=== PATIENT | female | born 1955 | race Caucasian/White ===

== ENCOUNTER 2017-05-25 20:44 | Emergency (ER) | payer OTHER, SELFPAY ==
--- NOTE | 2017-05-25 21:23 | EDM.PDOC ---
ED HPI GENERAL MEDICAL PROBLEM - General Chief Complaint: Abdominal Pain Stated Complaint: SEVERE ABD PAINS, [id number] Time Seen by Provider: 05/25/17 21:17 Source of Information: Reports: Patient History Limitations: Reports: No Limitations - History of Present Illness INITIAL COMMENTS - FREE TEXT/NARRATIVE: This 61 yo female patient reports to the ED with upper abdominal pain with nausea/vomiting. The patient reports her pain started at about 2000 tonight and has continued to get worse. The patient has not taken anything for her current symptoms. 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 The patient reports she has been doing good until she had sausage this evening. Onset: Today Onset Date: 05/25/17 Onset Time: 20:00 Duration: Constant, Getting Worse Location: Reports: Abdomen (RUQ radiating to her back and right shoulder blade) Quality: Reports: Ache, Sharp Severity: Severe Improves with: Reports: None Worsens with: Reports: None Associated Symptoms: Reports: Nausea/Vomiting Right Upper Abdomen Pain Score (Numeric/FACES): 9 - Related Data Allergies Allergy/AdvReac Type Severity Reaction Status Date / Time morphine Allergy Hallucinati Verified 05/25/17 21:23 ons quinine Allergy Rash Verified 05/25/17 21:23 Home Meds: Home Meds Ibuprofen [Motrin] 400 mg PO Q8H PRN 10/21/14 [History] Past Medical History - Past Health History Medical/Surgical History: Denies Medical/Surgical History Social & Family History - Tobacco Use Smoking Status *Q: Current Every Day Smoker Years of Tobacco use: 40 Packs/Tins Daily: 0.3 Used Tobacco, but Quit: Yes Month Tobacco Last Used: 10/17/14 Second Hand Smoke Exposure: Yes - Caffeine Use Caffeine Use: Reports: Soda - Alcohol Use Days Per Week of Alcohol Use: 0 - Recreational Drug Use Recreational Drug Use: No - Living Situation & Occupation Living situation: Reports: , with Family Occupation: Employed ED ROS GENERAL - Review of Systems Review Of Systems: ROS reveals no pertinent complaints other than HPI. ED EXAM, GI/ABD - Physical Exam Exam: See Below Exam Limited By: No Limitations General Appearance: Alert, WD/WN, Moderate Distress, Obese Eyes: Bilateral: Normal Appearance, EOMI Ears: Normal External Exam, Normal Canal, Hearing Grossly Normal, Normal TMs Nose: Normal Inspection, Normal Mucosa, No Blood Throat/Mouth: Normal Inspection, Normal Lips, Normal Teeth, Normal Gums, Normal Oropharynx, Normal Voice, No Airway Compromise Head: Atraumatic, Normocephalic Neck: Normal Inspection, Supple, Non-Tender, Full Range of Motion Respiratory/Chest: No Respiratory Distress, Lungs Clear, Normal Breath Sounds, No Accessory Muscle Use, Chest Non-Tender Cardiovascular: Normal Peripheral Pulses, Regular Rate, Rhythm, No Edema, No Gallop, No JVD, No Murmur, No Rub GI/Abdominal Exam: Normal Bowel Sounds, Soft, No Organomegaly, No Distention, No Abnormal Bruit, No Mass, Pelvis Stable, Tender (RUQ), Other (obese) (Female) Exam: Deferred Rectal (Female) Exam: Deferred Back Exam: Normal Inspection, Full Range of Motion, NT Extremities: Normal Inspection, Normal Range of Motion, Non-Tender, Normal Capillary Refill, No Pedal Edema Neurological: Alert, Oriented, CN II-XII Intact, Normal Cognition, Normal Gait, Normal Reflexes, No Motor/Sensory Deficits Psychiatric: Normal Affect, Normal Mood Skin Exam: Warm, Dry, Intact, Normal Color, No Rash Lymphatic: No Adenopathy Course - Vital Signs Last Recorded V/S: Last Vital Signs Temp 35.8 C 05/25/17 21:05 Pulse 65 05/25/17 21:05 Resp 16 05/25/17 21:05 BP 161/101 H 05/25/17 21:05 Pulse Ox 98 05/25/17 21:05 - Orders/Labs/Meds Labs: Laboratory Tests 05/25/17 05/25/17 05/25/17 Range/Units 21:10 21:10 22:28 WBC 11.8 H (5.0-10.0) 10^3/uL RBC 4.53 (4.2-5.4) 10^6/uL Hgb 13.8 (12.0-16.0) g/dL Hct 40.9 (37.0-47.0) % MCV 90.3 (80-100) fL MCH 30.5 (27.0-34.0) pg MCHC 33.7 (33.0-35.0) g/dL Plt Count 205 (150-450) 10^3/uL Neut % (Auto) 78.6 H (42.2-75.2) % Lymph % (Auto) 13.4 L (20.5-50.1) % [place] % (Auto) 6.8 (2-8) % Eos % (Auto) 1.0 (1.0-3.0) % Baso % (Auto) 0.2 (0.0-1.0) % Sodium 137 (135-145) mmol/L Potassium 4.4 (3.6-5.0) mmol/L Chloride 101 (101-111) mmol/L Carbon Dioxide 26.0 (21.0-31.0) mmol/L Anion Gap 14.4 BUN 11 (7-18) mg/dL Creatinine 0.8 (0.6-1.3) mg/dL Est Cr Clr Drug Dosing 60.06 mL/min Estimated GFR (MDRD) > 60 BUN/Creatinine Ratio 13.75 Glucose 143 H (74-105) mg/dL Calcium 9.3 (8.4-10.2) mg/dl Magnesium 1.9 (1.8-2.5) mg/dL Total Bilirubin 0.5 (0.2-1.0) mg/dL AST 20 (10-42) IU/L ALT 23 (10-60) IU/L Alkaline Phosphatase 60 (42-121) IU/L Total Protein 7.3 (6.7-8.2) g/dl Albumin 4.4 (3.2-5.5) g/dl Globulin 2.9 Albumin/Globulin Ratio 1.52 Amylase 89 (28-100) U/L Lipase 24 (22-51) U/L Urine Color Yellow (YELLOW) Urine Appearance Cloudy (CLEAR) Urine pH 6.0 (5.0-9.0) Ur Specific [place] 1.015 (1.005-1.030) Urine Protein Negative (NEGATIVE) Urine Glucose (UA) Negative (NEGATIVE) Urine Ketones Negative (NEGATIVE) Urine Occult Blood Small H (NEGATIVE) Urine Nitrite Negative (NEGATIVE) Urine Bilirubin Negative (NEGATIVE) Urine Urobilinogen 0.2 (0.2-1.0) mg/dL Ur Leukocyte Esterase Negative (NEGATIVE) Urine RBC 5-10 H /HPF Urine WBC 5-10 H (0-5/HPF) /HPF Ur Epithelial Cells Many H /HPF Urine Bacteria Many H (0-FEW/HPF) /HPF Urine Yeast Moderate H (0/HPF) /HPF Meds: Medications Discontinued Medications Generic Name Dose Route Start Last Admin Trade Name Ja PRN Reason Stop Dose Admin Hydromorphone HCl 1 mg 05/25/17 21:28 05/25/17 21:33 Dilaudid IVPUSH 05/25/17 21:29 1 mg ONETIME ONE Administration Iopamidol 100 ml 05/25/17 21:44 Isovue-300 (61%) IVPUSH 05/25/17 21:45 ONETIME ONE Ondansetron HCl 4 mg 05/25/17 21:25 05/25/17 21:33 Zofran IV 05/25/17 21:26 4 mg ONETIME ONE Administration Departure - Departure Time of Disposition: 23:09 Disposition: Home, Self-Care 01 Condition: Fair Clinical Impression: Renal cyst Cholelithiasis Qualifiers: Cholelithiasis location: gallbladder Cholecystitis presence: without cholecystitis Biliary obstruction: without biliary obstruction Qualified Code(s) : K80.20 - Calculus of gallbladder without cholecystitis without obstruction - Discharge Information Instructions: Cholelithiasis, [id number], Renal Mass Forms: ED Department Discharge Care Plan Goals: The patient was advised of the examination lab and CT results during the visit. The patient was given an IV dose of Zofran for nausea and Dilaudid for pain. The patient was discharged with Tramadol (50 mg) #2 to take 1 by mouth every 8 hours and a script for Tramadol (50 mg) #15 to take 1 by mouth 3 times per day as needed. The patient should follow-up with her primary care facility for continued evaluation (gall bladder and renal ultrasound) and treatment. If the patient has any additional symptoms or concerns, the patient should visit her primary care facility or return to the emergency department.
[2017-05-25] MEDS ORDERED: Ondansetron 4 MG/2 ML SDV IV ONE (21:25)
[2017-05-25] MEDS ORDERED: HYDROmorphone 1 MG/ML Syringe IVPUSH ONE (21:28)
[2017-05-25 21:40] LABS: CHLORIDE,CL 101 mmol/L (101-111); SODIUM,NA 137 mmol/L (135-145)
[2017-05-25] MEDS ORDERED: Iopamidol 612 MG/ML 100 ML Bottle IVPUSH ONE (21:44)
[2017-05-25] MEDS ORDERED: traMADol 50 MG Tab PO ONE (23:18)
[2017-05-25] MEDS ORDERED: traMADol 50 MG Tab ONE (23:18)
[2017-05-25 23:35] VITALS: BP 141/98
== END 2017-05-25 22:38 | disposition home or self-care (01) ==
LOC: DL.ED 20:44
DX: K80.20 Calculus of gallbladder without cholecystitis without obstruction (principal); N28.1 Cyst of kidney, acquired; Z88.5 Allergy status to narcotic agent; F17.210 Nicotine dependence, cigarettes, uncomplicated
CPT/HCPCS: 36415; 74160; 80053; 81001; 82150; 83690; 83735; 85025; 96374; 96375; 99284; A9270; J1170; J2405; Q9967

== ENCOUNTER 2017-07-28 16:21 | Emergency (ER) | payer OTHER ==
[2017-07-28] MEDS ORDERED: Ketorolac 30 MG/ML SDV IVPUSH ONE (17:18)
[2017-07-28] MEDS ORDERED: GI Cocktail Oral Solution 30 ML PO ONE (17:18)
--- NOTE | 2017-07-28 17:20 | EDM.PDOC ---
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 Pt. smoke 1/2 ppd cigs and has been coughing more. Pt. Denies N&V and Denies radiation to neck or sweating Onset: Today Onset Date: 07/28/17 Onset Time: 10:00 Duration: Hour(s): Location: Reports: Chest Quality: Reports: Ache Improves with: Reports: None Worsens with: Reports: None Associated Symptoms: Reports: No Other Symptoms Left Chest Pain Score (Numeric/FACES): 5 - Related Data Allergies Allergy/AdvReac Type Severity Reaction Status Date / Time morphine Allergy Hallucinati Verified 05/25/17 21:23 ons quinine Allergy Rash Verified 05/25/17 21:23 Home Meds: Home Meds Ibuprofen [Motrin] 400 mg PO Q8H PRN 10/21/14 [History] Past Medical History - Past Health History Medical/Surgical History: Denies Medical/Surgical History Social & Family History - Tobacco Use Smoking Status *Q: Current Every Day Smoker Years of Tobacco use: 40 Packs/Tins Daily: 0.3 Used Tobacco, but Quit: Yes Month Tobacco Last Used: 10/17/14 Second Hand Smoke Exposure: Yes - Caffeine Use Caffeine Use: Reports: Soda - Alcohol Use Days Per Week of Alcohol Use: 0 - Recreational Drug Use Recreational Drug Use: No - Living Situation & Occupation Living situation: Reports: , with Family Occupation: Employed ED ROS GENERAL - Review of Systems Review Of Systems: See Below Constitutional: Reports: No Symptoms HEENT: Reports: No Symptoms Respiratory: Reports: No Symptoms Cardiovascular: Reports: Chest Pain Endocrine: Reports: No Symptoms GI/Abdominal: Reports: No Symptoms Musculoskeletal: Reports: No Symptoms Skin: Reports: No Symptoms Neurological: Reports: No Symptoms Psychiatric: Reports: No Symptoms Hematologic/Lymphatic: Reports: No Symptoms Immunologic: Reports: No Symptoms ED EXAM, GENERAL - Physical Exam Exam: See Below Exam Limited By: No Limitations General Appearance: Alert, No Apparent Distress, Obese Eye Exam: Bilateral Eye: EOMI, PERRL Ears: Normal External Exam Nose: Normal Inspection Throat/Mouth: Normal Inspection, Normal Lips Head: Atraumatic, Normocephalic Neck: Normal Inspection, Supple Respiratory/Chest: No Respiratory Distress, Lungs Clear, Normal Breath Sounds, Other (chest tenderness in costocartilege area on palpation) Cardiovascular: Normal Peripheral Pulses, Regular Rate, Rhythm, No Edema Peripheral Pulses: 2+: Brachial (L), Brachial (R), Radial (L), Radial (R) GI/Abdominal: Normal Bowel Sounds Back Exam: Normal Inspection Extremities: Normal Inspection, Normal Range of Motion Neurological: Alert, Oriented, CN II-XII Intact, Normal Cognition Psychiatric: Normal Affect, Normal Mood Skin Exam: Warm, Dry, Intact Lymphatic: No Adenopathy Course - Vital Signs Last Recorded V/S: Last Vital Signs Temp 35.9 C 07/28/17 18:11 Pulse 63 07/28/17 18:11 Resp 16 07/28/17 18:11 BP 134/78 07/28/17 18:11 Pulse Ox 97 07/28/17 18:11 - Orders/Labs/Meds Orders: Active Orders 24 hr Category Date Time Status EKG Documentation Completion [RC] STAT Care 07/28/17 17:18 Active Chest 2V [CR] Urgent Exams 07/28/17 17:17 Taken Sodium Chloride 0.9% [Normal Saline] 500 ml Med 07/28/17 17:30 Active IV ASDIRECTED Medication Orders Sodium Chloride (Normal Saline) 500 mls @ 100 mls/hr IV ASDIRECTED JEREMÍAS Last Admin: 07/28/17 18:06 Dose: 100 mls/hr Labs: Laboratory Tests 07/28/17 07/28/17 07/28/17 Range/Units 17:44 17:44 17:44 WBC 8.8 (5.0-10.0) 10^3/uL RBC 4.57 (4.2-5.4) 10^6/uL Hgb 13.7 (12.0-16.0) g/dL Hct 40.9 (37.0-47.0) % MCV 89.5 (80-100) fL MCH 30.0 (27.0-34.0) pg MCHC 33.5 (33.0-35.0) g/dL Plt Count 210 (150-450) 10^3/uL Neut % (Auto) 61.8 (42.2-75.2) % Lymph % (Auto) 27.8 (20.5-50.1) % [place] % (Auto) 7.9 (2-8) % Eos % (Auto) 2.2 (1.0-3.0) % Baso % (Auto) 0.3 (0.0-1.0) % D-Dimer, Quantitative 194 (0-400) ng/mL Sodium 139 (135-145) mmol/L Potassium 5.0 (3.6-5.0) mmol/L Chloride 104 (101-111) mmol/L Carbon Dioxide 26.0 (21.0-31.0) mmol/L Anion Gap 14.0 BUN 19 H (7-18) mg/dL Creatinine 0.8 (0.6-1.3) mg/dL Est Cr Clr Drug Dosing 58.77 mL/min Estimated GFR (MDRD) > 60 BUN/Creatinine Ratio 23.75 Glucose 96 (74-105) mg/dL Calcium 10.0 (8.4-10.2) mg/dl Total Bilirubin 0.5 (0.2-1.0) mg/dL AST 17 (10-42) IU/L ALT 19 (10-60) IU/L Alkaline Phosphatase 69 (42-121) IU/L Troponin I < 0.02 (0.00-0.02) ng/ml Total Protein 7.4 (6.7-8.2) g/dl Albumin 4.3 (3.2-5.5) g/dl Globulin 3.1 Albumin/Globulin Ratio 1.39 Meds: Medications Generic Name Dose Route Start Last Admin Trade Name Freq PRN Reason Stop Dose Admin Sodium Chloride 500 mls @ 100 mls/hr 07/28/17 17:30 07/28/17 18:06 Normal Saline IV 100 mls/hr ASDIRECTED JEREMÍAS Administration Discontinued Medications Generic Name Dose Route Start Last Admin Trade Name Freq PRN Reason Stop Dose Admin Al Hydroxide/Mg Hydroxide 30 ml 07/28/17 17:18 07/28/17 18:05 Gi Cocktail PO 07/28/17 17:19 30 ml ONETIME ONE Administration Ketorolac Tromethamine 30 mg 07/28/17 17:18 07/28/17 18:09 Toradol IVPUSH 07/28/17 17:19 30 mg ONETIME ONE Administration Departure - Departure Time of Disposition: 18:22 Disposition: Home, Self-Care 01 Condition: Good Clinical Impression: Non-cardiac chest pain, Tobacco abuse disorder Forms: ED Department Discharge Additional Instructions: Rest STOP CIGARETTE SMOKING it can provoke a heart attack YOU HAVE: COSTOCHONDRITIS stop all heavy lifting , pulling or pushing For pain use the medication as prescribed: LIDODERM PATCHES 5% apply 1 patch over the area of pain for 12 hours and the remove for 12 hrs. IBUPROFEN 600mg take 1 TID w/ food F/U w/PCP - My Orders Last 24 Hours: My Active Orders 07/28/17 17:17 Chest 2V [CR] Urgent 07/28/17 17:18 EKG Documentation Completion [RC] STAT 07/28/17 17:30 Sodium Chloride 0.9% [Normal Saline] 500 ml IV ASDIRECTED - Assessment/Plan Last 24 Hours: My Active Orders 07/28/17 17:17 Chest 2V [CR] Urgent 07/28/17 17:18 EKG Documentation Completion [RC] STAT 07/28/17 17:30 Sodium Chloride 0.9% [Normal Saline] 500 ml IV ASDIRECTED
[2017-07-28] MEDS ORDERED: Sodium Chloride 0.9% 500 ML IV SCH (17:30)
[2017-07-28 18:09] LABS: CHLORIDE,CL 104 mmol/L (101-111); SODIUM,NA 139 mmol/L (135-145)
[2017-07-28 18:12] VITALS: BP 134/78
--- NOTE | 2017-09-09 14:54 | EKG ---
07/28/2017 - HILARIO LERMA - Normal standard 12-lead EKG, showing normal sinus rhythm with a ventricular rate of 57 beats per minute normal NV interval and QRS duration, and no acute ST-T changes. [facility] /[id number]
== END 2017-07-28 18:47 | disposition home or self-care (01) ==
LOC: DL.ED 16:21
DX: R07.89 Other chest pain (principal); F17.210 Nicotine dependence, cigarettes, uncomplicated; Z88.5 Allergy status to narcotic agent
CPT/HCPCS: 36415; 71020; 80053; 84484; 85025; 85379; 93005; 96361; 96374; 99285; A9270; J1885; J7040

== ENCOUNTER 2017-10-14 10:06 | Emergency (ER) | payer OTHER ==
[2017-10-14 11:07] LABS: ANION GAP 14.6; CHLORIDE,CL 100 mmol/L (101-111); SODIUM,NA 135 mmol/L (135-145)
[2017-10-14] MEDS ORDERED: Sodium Chloride 0.9% 1,000 ML IV ONE (11:16)
[2017-10-14] MEDS ORDERED: Ondansetron 4 MG/2 ML SDV IV ONE (11:16)
--- NOTE | 2017-10-14 11:37 | EDM.PDOC ---
ED HPI GENERAL MEDICAL PROBLEM - General Chief Complaint: Abdominal Pain Stated Complaint: GALLBALDDER Time Seen by Provider: 10/14/17 11:07 Source of Information: Reports: Patient, RN, RN Notes Reviewed History Limitations: Reports: No Limitations - History of Present Illness INITIAL COMMENTS - FREE TEXT/NARRATIVE: Patient presents to ER with complaint of epigastric pain radiating to back. This woke her up at 0300. She has nausea and vomiting present. She rates pain 10 /10. She has pressure and pain. States she had these episodes in the past. She has no chest pain, shortness of breath and diarrhea. She has chills, fever, nausea and vomiting. She states she was told that her gallbladder could not come out due to her liver. Onset: Today Duration: Constant Location: Reports: Abdomen Quality: Reports: Ache Severity: Severe Improves with: Reports: None Worsens with: Reports: None Associated Symptoms: Reports: No Other Symptoms Epigastric Pain Score (Numeric/FACES): 10 - Related Data Allergies Allergy/AdvReac Type Severity Reaction Status Date / Time morphine Allergy Hallucinati Verified 10/14/17 10:16 ons quinine Allergy Rash Verified 10/14/17 10:16 Home Meds: Home Meds Acetaminophen [Tylenol] 650 mg PO Q6H PRN 10/14/17 [History] traMADol [Ultram] 50 mg PO DAILY 10/14/17 [History] Past Medical History - Past Health History Medical/Surgical History: Denies Medical/Surgical History Gastrointestinal History: Reports: Cholelithiasis Psychiatric History: Reports: Bipolar - Past Surgical History HEENT Surgical History: Reports: Other (See Below) Other HEENT Surgeries/Procedures: tooth surgery, cauterization of a nosebleed GI Surgical History: Reports: Appendectomy Female Surgical History: Reports: Other (See Below) Other Female Surgeries/Procedures: ovarian cyst Social & Family History - Tobacco Use Smoking Status *Q: Current Every Day Smoker Years of Tobacco use: 30 Packs/Tins Daily: 0.3 Used Tobacco, but Quit: Yes Month Tobacco Last Used: 10/17/14 Second Hand Smoke Exposure: Yes - Caffeine Use Caffeine Use: Reports: Soda - Alcohol Use Days Per Week of Alcohol Use: 0 - Recreational Drug Use Recreational Drug Use: No - Living Situation & Occupation Living situation: Reports: , with Family Occupation: Employed ED ROS GENERAL - Review of Systems Review Of Systems: ROS reveals no pertinent complaints other than HPI. ED EXAM, GI/ABD - Physical Exam Exam: See Below Exam Limited By: No Limitations General Appearance: Alert, WD/WN, No Apparent Distress Eyes: Bilateral: Normal Appearance Ears: Normal External Exam, Normal Canal, Hearing Grossly Normal, Normal TMs Nose: Normal Inspection, Normal Mucosa, No Blood Throat/Mouth: Normal Inspection, Normal Lips, Normal Teeth, Normal Gums, Normal Oropharynx, Normal Voice, No Airway Compromise Head: Atraumatic, Normocephalic Neck: Normal Inspection, Supple, Non-Tender, Full Range of Motion Respiratory/Chest: No Respiratory Distress, Lungs Clear, Normal Breath Sounds, No Accessory Muscle Use, Chest Non-Tender Cardiovascular: Normal Peripheral Pulses, Regular Rate, Rhythm, No Edema, No Gallop, No JVD, No Murmur, No Rub GI/Abdominal Exam: Soft (and tender) (Female) Exam: Deferred Rectal (Female) Exam: Deferred Back Exam: Normal Inspection, Full Range of Motion, NT Extremities: Normal Inspection, Normal Range of Motion, Non-Tender, Normal Capillary Refill, No Pedal Edema Neurological: Alert, Oriented, CN II-XII Intact, Normal Cognition, Normal Gait, Normal Reflexes, No Motor/Sensory Deficits Psychiatric: Normal Affect, Normal Mood Skin Exam: Warm, Dry, Intact, Normal Color, No Rash Lymphatic: No Adenopathy Course - Vital Signs Last Recorded V/S: Last Vital Signs Temp 97.2 F 10/14/17 13:05 Pulse 75 10/14/17 13:05 Resp 18 10/14/17 13:05 BP 160/64 H 10/14/17 13:05 Pulse Ox 95 10/14/17 13:05 - Orders/Labs/Meds Orders: Active Orders 24 hr Category Date Time Status Abdomen Pelvis w Cont [CT] Urgent Exams 10/14/17 11:14 Taken Labs: Laboratory Tests 10/14/17 10/14/17 10/14/17 Range/Units 10:40 10:40 11:45 WBC 13.4 H (5.0-10.0) 10^3/uL RBC 4.55 (4.2-5.4) 10^6/uL Hgb 13.7 (12.0-16.0) g/dL Hct 40.4 (37.0-47.0) % MCV 88.8 (80-100) fL MCH 30.1 (27.0-34.0) pg MCHC 33.9 (33.0-35.0) g/dL Plt Count 235 (150-450) 10^3/uL Neut % (Auto) 88.6 H (42.2-75.2) % Lymph % (Auto) 8.1 L (20.5-50.1) % [place] % (Auto) 3.1 (2-8) % Eos % (Auto) 0.0 L (1.0-3.0) % Baso % (Auto) 0.2 (0.0-1.0) % Sodium 135 (135-145) mmol/L Potassium 4.6 (3.6-5.0) mmol/L Chloride 100 L (101-111) mmol/L Carbon Dioxide 25.0 (21.0-31.0) mmol/L Anion Gap 14.6 BUN 12 (7-18) mg/dL Creatinine 0.8 (0.6-1.3) mg/dL Est Cr Clr Drug Dosing 61.35 mL/min Estimated GFR (MDRD) > 60 BUN/Creatinine Ratio 15.00 Glucose 152 H (74-105) mg/dL Calcium 9.5 (8.4-10.2) mg/dl Total Bilirubin 0.5 (0.2-1.0) mg/dL AST 23 (10-42) IU/L ALT 22 (10-60) IU/L Alkaline Phosphatase 68 (42-121) IU/L Total Protein 7.4 (6.7-8.2) g/dl Albumin 4.3 (3.2-5.5) g/dl Globulin 3.1 Albumin/Globulin Ratio 1.39 Amylase 97 (28-100) U/L Lipase 18 L (22-51) U/L Urine Color Yellow (YELLOW) Urine Appearance Clear (CLEAR) Urine pH 7.0 (5.0-9.0) Ur Specific [place] 1.020 (1.005-1.030) Urine Protein Trace H (NEGATIVE) Urine Glucose (UA) Negative (NEGATIVE) Urine Ketones Trace H (NEGATIVE) Urine Occult Blood Trace-intact H (NEGATIVE) Urine Nitrite Negative (NEGATIVE) Urine Bilirubin Negative (NEGATIVE) Urine Urobilinogen 0.2 (0.2-1.0) mg/dL Ur Leukocyte Esterase Negative (NEGATIVE) Urine RBC 0-5 /HPF Urine WBC 0-5 (0-5/HPF) /HPF Ur Epithelial Cells Moderate H /HPF Amorphous Sediment Few (0/HPF) /HPF Urine Bacteria Few (0-FEW/HPF) /HPF Urine Mucus Many H /LPF Meds: Medications Discontinued Medications Generic Name Dose Route Start Last Admin Trade Name Saulq PRN Reason Stop Dose Admin Al Hydroxide/Mg Hydroxide 30 ml 10/14/17 13:06 10/14/17 13:09 Gi Cocktail PO 10/14/17 13:07 30 ml ONETIME ONE Administration Sodium Chloride 1,000 mls @ 999 mls/hr 10/14/17 11:16 10/14/17 11:31 Normal Saline IV 10/14/17 12:16 999 mls/hr .BOLUS ONE Administration Iopamidol 100 ml 10/14/17 12:06 10/14/17 12:15 Isovue-300 (61%) IVPUSH 10/14/17 12:07 100 ml ONETIME ONE Administration Ondansetron HCl 4 mg 10/14/17 11:16 10/14/17 11:32 Zofran IV 10/14/17 11:17 4 mg ONETIME ONE Administration - Radiology Interpretation Free Text/Narrative:: CT abdomen and pelvis: No sign of acute intra-abdominal pathology. Lobular soft tissue mass left kidney, possibly increased from August. Unremarkable CT appearance to gallbladder. See Rad report. Departure - Departure Time of Disposition: 13:28 Disposition: Home, Self-Care 01 Condition: Fair Clinical Impression: Abdominal pain Qualifiers: Abdominal location: epigastric Qualified Code(s): R10.13 - Epigastric pain Acid reflux Qualifiers: Esophagitis presence: without esophagitis Qualified Code(s): K21.9 - Gastro- esophageal reflux disease without esophagitis - Discharge Information Instructions: Nausea and Vomiting, Adult, [id number], Abdominal Pain, Adult, [id number], Indigestion, [id number], Gastroesophageal Reflux Disease, Adult , [id number] Forms: ED Department Discharge Additional Instructions: RX: Omeprazole, Tramadol Follow up with your primary care facility next week [facility] diet, increase water intake. - My Orders Last 24 Hours: My Active Orders 10/14/17 11:14 Abdomen Pelvis w Cont [CT] Urgent - Assessment/Plan Last 24 Hours: My Active Orders 10/14/17 11:14 Abdomen Pelvis w Cont [CT] Urgent
[2017-10-14] MEDS ORDERED: Iopamidol 612 MG/ML 100 ML Bottle IVPUSH ONE (12:06)
[2017-10-14 13:06] VITALS: BP 160/64
[2017-10-14] MEDS ORDERED: GI Cocktail Oral Solution 30 ML PO ONE (13:06)
== END 2017-10-14 13:38 | disposition home or self-care (01) ==
LOC: DL.ED 10:06
DX: K21.9 Gastro-esophageal reflux disease without esophagitis (principal); F17.210 Nicotine dependence, cigarettes, uncomplicated; Z88.5 Allergy status to narcotic agent; Z79.899 Other long term (current) drug therapy
CPT/HCPCS: 36415; 74177; 80053; 81001; 82150; 83690; 85025; 96361; 96374; 99284; A9270; J2405; J7030; Q9967

== ENCOUNTER 2018-03-30 08:08 | Emergency (ER) | payer OTHER ==
[2018-03-30 08:19] VITALS: BP 166/79
[2018-03-30] MEDS ORDERED: Famotidine 20 MG Tab PO ONE (08:52)
[2018-03-30] MEDS ORDERED: GI Cocktail Oral Solution 30 ML PO ONE (08:53)
[2018-03-30] MEDS ORDERED: Promethazine 25 MG/ML SDV IM ONE (09:01)
[2018-03-30 09:29] LABS: CHLORIDE,CL 100 mmol/L (101-111); SODIUM,NA 134 mmol/L (135-145)
--- NOTE | 2018-03-30 12:09 | ER ---
SUBJECTIVE: The patient is a 62-year-old female who comes in with complaints of midepigastric and right upper quadrant abdominal pain, similar to previous when she has eaten fat. She has had previous CT scans and was told she has gall gallbladder disease and stones, but has not had it out as of yet. She denies any fevers or chills. She states that she ate some fatty food lately and this again has exacerbated her pain as it has in the past. No trauma or falls. No dysuria or hematuria. No bowel changes, melena, BRBPR. No chest pain or shortness of breath. Otherwise, she is at her normal baseline. She states this started last night. She took a tramadol, but has also been having some nonbloody vomiting. PAST MEDICAL HISTORY: Significant for gallbladder disease with cholecystitis and recurrent events with fatty food intake. Pregnancies. Impaired vision, wears glasses. Two surgeries, cauterization of nosebleed, cholelithiasis, appendectomy, ovarian cyst. Long-term tobacco abuse. MEDICATIONS: Current medications included: 1. Tylenol p.r.n. 2. Tramadol p.r.n. ALLERGIES: She is allergic to morphine, causes hallucinations; quinine causes rash. SOCIAL HISTORY: She has been smoking tobacco for 25 years. She denies any alcohol use. REVIEW OF SYSTEMS: No fevers, chills, headache, syncope, near syncope, chest pain, or shortness of breath. She does have midepigastric and right upper quadrant abdominal pain. No flank pain. No dysuria or hematuria. Denies . Denies bowel changes. No melena or BRBPR. No assault or trauma. No bites stings or rashes. Please see HPI. OBJECTIVE: Vital Signs: She is afebrile. Heart rate 78, blood pressure 166/79 on arrival, respirations 16, oxygen is 98% on room air. General: Pleasant. No distress. Normal gait. Interactive. Fairly good historian. Moves well. HEENT: Normocephalic and atraumatic. No jaundice. Mucous membranes are moist. Chest: Clear. Cardiovascular System: RRR. Abdomen: Midepigastric and right upper quadrant tenderness; no acute abdomen, however. Soft, is somewhat obese. Back: No CVAT. LAB/STUDIES: White count is mildly elevated at 13.0. Differential is not remarkable. Electrolytes are not remarkable. BUN and creatinine are normal. Her liver function tests are all normal as is her total bilirubin. Her amylase and lipase are also both normal. She does not have a urinary tract infection; it is negative nitrites, negative leukocyte esterase, although small amount of blood. EMERGENCY ROOM COURSE: She was given a GI cocktail, a tablet of Pepcid, and an injection of Phenergan IM. She felt markedly improved. I did sit down with her and discussed the fact that every time she eats fat, she is going to call on her gallbladder to try to inject bile into her GI tract and with stones over a nonfunctioning gallbladder, her symptoms will be recurrent each and every time she ingests fat. She agrees that if she does not eat fat, her symptoms are far and few between and only reoccur when she does eat fat. Advised her that her options are to quit eating any fat or to go and see her PCP and get a referral to a surgeon to get a cholecystectomy. ASSESSMENT: 1. Midepigastric and right upper quadrant abdominal pain, thought to be secondary to exacerbation of gallbladder pain and colic after eating fat. 2. History of known gallbladder disease with reported cholelithiasis. PLAN: Strongly recommend getting referral to a surgeon for further evaluation and possibly a cholecystectomy. Recommend going to see her PCP as early as she can this coming week. In meantime, bland diet, avoid any fats. Continue with regular meds. Can use [id number] Pepcid or ranitidine as well. [facility] /[id number]
== END 2018-03-30 10:02 | disposition home or self-care (01) ==
LOC: DL.ED 08:08
DX: R10.11 Right upper quadrant pain (principal); R10.13 Epigastric pain; F17.210 Nicotine dependence, cigarettes, uncomplicated; Z88.5 Allergy status to narcotic agent; Z87.19 Personal history of other diseases of the digestive system
CPT/HCPCS: 36415; 80053; 81003; 82150; 83690; 85025; 96372; 99284; A9270; J2550

== ENCOUNTER 2019-01-14 08:07 | Emergency (ER) | payer OTHER, SELFPAY ==
[2019-01-14 08:20] VITALS: BP 168/91
--- NOTE | 2019-01-14 08:25 | EDM.PDOC ---
ED HPI GENERAL MEDICAL PROBLEM - General Chief Complaint: Chest Pain Stated Complaint: CHEST PAIN, ARM AND STOMACH PAIN Time Seen by Provider: 01/14/19 08:22 Source of Information: Reports: Patient, Old Records, RN, RN Notes Reviewed History Limitations: Reports: No Limitations - History of Present Illness INITIAL COMMENTS - FREE TEXT/NARRATIVE: Pt presents to ER from home by POV with c/o onset of chest, epigastric and RUQ abdominal pain radiating to the upper mid-back and into the right arm w/some tingling last evening. The pain returned and today. The pain has been associated with nausea and mild shortness of breath. Denies vomiting, diarrhea, cough, edema, orthopnea, fever, chills, or diaphoresis. Hx of gallstones, but was not a surgical candidate. Hx of left renal CA, and COPD. 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 Mid-Sternal Chest Pain Score (Numeric/FACES): 5 - Related Data Allergies Allergy/AdvReac Type Severity Reaction Status Date / Time morphine Allergy Hallucinati Verified 01/14/19 08:23 ons quinine Allergy Rash Verified 01/14/19 08:23 Home Meds: Home Meds Acetaminophen [Tylenol] 650 mg PO Q6H PRN 10/14/17 [History] traMADol [Ultram] 50 mg PO DAILY 10/14/17 [History] Hydrocodone/Acetaminophen [Hydrocodon-Acetaminophen 5-325] 1 tab PO Q6HR [History] Past Medical History - Past Health History Medical/Surgical History: Denies Medical/Surgical History HEENT History: Reports: Impaired Vision Other HEENT History: wears glasses Cardiovascular History: Reports: High Cholesterol, Hypertension Respiratory History: Reports: COPD Gastrointestinal History: Reports: Cholelithiasis, Cirrhosis, GERD Genitourinary History: Reports: None 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 Musculoskeletal History: Reports: None Neurological History: Reports: None Psychiatric History: Reports: Bipolar Endocrine/Metabolic History: Reports: Obesity/BMI 30+ Hematologic History: Reports: None Immunologic History: Reports: None Oncologic (Cancer) History: Reports: Renal Dermatologic History: Reports: None - Infectious Disease History Infectious Disease History: Reports: Chicken Pox, Measles - Past Surgical History Head Surgeries/Procedures: Reports: None HEENT Surgical History: Reports: Other (See Below) Other HEENT Surgeries/Procedures: tooth surgery, cauterization of a nosebleed GI Surgical History: Reports: Appendectomy Female Surgical History: Reports: Other (See Below) (Partial left kidney removal) Other Female Surgeries/Procedures: ovarian cyst Social & Family History - Family History Family Medical History: Noncontributory - Tobacco Use Smoking Status *Q: Current Every Day Smoker Years of Tobacco use: 30 Packs/Tins Daily: 0.5 - Caffeine Use Caffeine Use: Reports: Coffee, Soda - Recreational Drug Use Recreational Drug Use: No - Living Situation & Occupation Living situation: Reports: , with Significant Other, with Family Occupation: Employed ED ROS GENERAL - Review of Systems Review Of Systems: ROS reveals no pertinent complaints other than HPI. ED EXAM, GENERAL - Physical Exam Exam: See Below Exam Limited By: No Limitations General Appearance: Alert, WD/WN, No Apparent Distress, Obese Eye Exam: Bilateral Eye: Normal Inspection Ears: Hearing Grossly Normal Nose: Normal Inspection, No Blood Throat/Mouth: Normal Inspection, Normal Lips, Normal Oropharynx, Normal Voice, No Airway Compromise Head: Atraumatic, Normocephalic Neck: Normal Inspection, Supple, Non-Tender, Full Range of Motion Respiratory/Chest: No Respiratory Distress, No Accessory Muscle Use, Chest Non- Tender. No: Rales, Rhonchi, Wheezing Cardiovascular: Normal Peripheral Pulses, Regular Rate, Rhythm, No Edema, No Gallop, No JVD, No Murmur, No Rub GI/Abdominal: Normal Bowel Sounds, Soft, No Organomegaly, No Distention, Tender (epigastric and RUQ). No: Guarding, Rigid, Rebound (Female) Exam: Deferred Rectal (Female) Exam: Deferred Back Exam: Normal Inspection, Full Range of Motion. No: CVA Tenderness (L), CVA Tenderness (R) Extremities: Normal Inspection, Normal Range of Motion, Non-Tender, No Pedal Edema Neurological: Alert, Oriented, CN II-XII Intact, Normal Cognition, No Motor/ Sensory Deficits Psychiatric: Normal Affect, Normal Mood Skin Exam: Warm, Dry, Intact, Normal Color, No Rash EKG INTERPRETATION EKG Date: 01/14/19 Time: 08:18 Rhythm: Other (SR) Rate (Beats/Min): 80 [place]: Normal P-Wave: Present QRS: Other (borderline inferior Q waves) ST-T: Normal QT: Normal Comparison: No Change EKG Interpretation Comments: No acute ischemic changes. Course - Vital Signs Last Recorded V/S: Last Vital Signs Temp 36.1 C 01/14/19 08:13 Pulse 85 01/14/19 08:13 Resp 15 01/14/19 08:13 BP 168/91 H 01/14/19 08:13 Pulse Ox 97 01/14/19 08:13 - Orders/Labs/Meds Orders: Active Orders 24 hr Category Date Time Status EKG 12 Lead [EKG Documentation Completion] [] STAT Care 01/14/19 08:22 Active Peripheral IV Care [] . DIRECTED Care 01/14/19 08:32 Active Sodium Chloride 0.9% [Saline Flush] Med 01/14/19 08:31 Active 10 ml FLUSH ASDIRECTED PRN Peripheral IV Insertion Adult [OM.PC] Stat Oth 01/14/19 08:31 Ordered Medication Orders Sodium Chloride (Saline Flush) 10 ml FLUSH ASDIRECTED PRN PRN Reason: Keep Vein Open Last Admin: 01/14/19 09:10 Dose: 10 ml Admin: 01/14/19 08:46 Dose: 10 ml Labs: Laboratory Tests 01/14/19 01/14/19 Range/Units 08:24 08:24 WBC 11.0 H (5.0-10.0) 10^3/uL RBC 4.96 (4.2-5.4) 10^6/uL Hgb 14.8 (12.0-16.0) g/dL Hct 43.8 (37.0-47.0) % MCV 88.3 (80-100) fL MCH 29.8 (27.0-34.0) pg MCHC 33.8 (33.0-35.0) g/dL Plt Count 198 (150-450) 10^3/uL Neut % (Auto) 70.9 (42.2-75.2) % Lymph % (Auto) 18.5 L (20.5-50.1) % Jerome % (Auto) 8.0 (2-8) % Eos % (Auto) 2.2 (1.0-3.0) % Baso % (Auto) 0.4 (0.0-1.0) % Sodium 131 L (135-145) mmol/L Potassium 4.4 (3.6-5.0) mmol/L Chloride 103 (101-111) mmol/L Carbon Dioxide 19.0 L (21.0-31.0) mmol/L Anion Gap 13.4 BUN 12 (7-18) mg/dL Creatinine 0.8 (0.6-1.3) mg/dL Est Cr Clr Drug Dosing 57.99 mL/min Estimated GFR (MDRD) > 60 BUN/Creatinine Ratio 15.00 Glucose 97 (74-105) mg/dL Calcium 8.7 (8.4-10.2) mg/dl Total Bilirubin 0.6 (0.2-1.0) mg/dL AST 23 (10-42) IU/L ALT 36 (10-60) IU/L Alkaline Phosphatase 54 (42-121) IU/L Troponin I < 0.02 (0.00-0.02) ng/ml Total Protein 7.1 (6.7-8.2) g/dl Albumin 4.2 (3.2-5.5) g/dl Globulin 2.9 Albumin/Globulin Ratio 1.45 Amylase 80 (28-100) U/L Lipase 32 (22-51) U/L Meds: Medications Generic Name Dose Route Start Last Admin Trade Name Freq PRN Reason Stop Dose Admin Sodium Chloride 10 ml 01/14/19 08:31 01/14/19 09:10 Saline Flush FLUSH 10 ml ASDIRECTED PRN Administration Keep Vein Open Discontinued Medications Generic Name Dose Route Start Last Admin Trade Name Freq PRN Reason Stop Dose Admin Al Hydroxide/Mg Hydroxide 30 ml 01/14/19 09:00 01/14/19 09:11 Gi Cocktail PO 01/14/19 09:01 30 ml ONETIME ONE Administration Aspirin 324 mg 01/14/19 08:33 01/14/19 08:42 Aspirin PO 01/14/19 08:34 324 mg ONETIME ONE Administration Famotidine 20 mg 01/14/19 09:00 01/14/19 09:09 Pepcid IVPUSH 01/14/19 09:01 20 mg ONETIME ONE Administration Ondansetron HCl 4 mg 01/14/19 08:41 01/14/19 08:45 Zofran IV 01/14/19 08:42 4 mg ONETIME ONE Administration - Radiology Interpretation Free Text/Narrative:: CXR: no acute process, see Rad. report. - Re-Assessments/Exams Free Text/Narrative Re-Assessment/Exam: 01/14/19 09:15 I explained the exam findings, lab, chest x-ray, and EKG results to the pt. I think that she is at low risk of having an acute coronary event, PE, CHF, pneumonia, or other life threatening source of her current symptoms. Her symptoms are most likely related to GERD and/or gastritis. I discussed the case and diagnostic results with pt's PCP Dr. Valverde, who is willing to f/u with the pt in clinic for further evaluation as needed. Departure - Departure Time of Disposition: 09:18 Disposition: Home, Self-Care 01 Condition: Good Clinical Impression: Non-cardiac chest pain, Epigastric abdominal pain Acid reflux Qualifiers: Esophagitis presence: with esophagitis Qualified Code(s): K21.0 - Gastro- esophageal reflux disease with esophagitis - Discharge Information *PRESCRIPTION DRUG MONITORING PROGRAM REVIEWED*: No *COPY OF PRESCRIPTION DRUG MONITORING REPORT IN PATIENT LISA: No Instructions: Gastroesophageal Reflux Disease, Adult, [id number], Food Choices for Gastroesophageal Reflux Disease, Adult, [id number], Nonspecific Chest Pain, [id number] Forms: ED Department Discharge Additional Instructions: Rx: Omeprazole 20mg Rx: Zofran 4mg Try to quit smoking. Follow up in clinic in the next week with Dr. Valverde for recheck. - My Orders Last 24 Hours: My Active Orders 01/14/19 08:22 EKG 12 Lead [EKG Documentation Completion] [RC] STAT 01/14/19 08:31 Sodium Chloride 0.9% [Saline Flush] 10 ml FLUSH ASDIRECTED PRN Peripheral IV Insertion Adult [OM.PC] Stat 01/14/19 08:32 Peripheral IV Care [RC] . DIRECTED - Assessment/Plan Last 24 Hours: My Active Orders 01/14/19 08:22 EKG 12 Lead [EKG Documentation Completion] [RC] STAT 01/14/19 08:31 Sodium Chloride 0.9% [Saline Flush] 10 ml FLUSH ASDIRECTED PRN Peripheral IV Insertion Adult [OM.PC] Stat 01/14/19 08:32 Peripheral IV Care [RC] . DIRECTED
[2019-01-14] MEDS ORDERED: Aspirin 81 MG Tab.Chew PO ONE (08:33)
[2019-01-14] MEDS ORDERED: Ondansetron 4 MG/2 ML SDV IV ONE (08:41)
[2019-01-14] MEDS: Sodium Chloride 0.9% 10 ML Syringe FLUSH PRN ×2 (08:46→09:10)
--- NOTE | 2019-01-14 08:54 | CR ---
Clinical history: 63-year-old female with chest pain. Interpretation: Upright AP portable chest film reveals no sign of acute cardiopulmonary abnormality, despite less than optimal inspiratory effort obese female. Normal cardiac silhouette without alveolar edema or dependent pleural effusion. No new lung mass, hilar lymphadenopathy or focal lobar pneumonia when compared to 28 July 2017 films. No atelectasis/collapse. 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
[2019-01-14] MEDS ORDERED: GI Cocktail Oral Solution 30 ML PO ONE (09:00)
[2019-01-14] MEDS ORDERED: Famotidine 20 MG/2 ML SDV IVPUSH ONE (09:00)
[2019-01-14 09:02] LABS: ANION GAP 13.4; CHLORIDE,CL 103 mmol/L (101-111); SODIUM,NA 131 mmol/L (135-145)
== END 2019-01-14 09:37 | disposition home or self-care (01) ==
LOC: DL.ED 08:07
DX: K21.0 Gastro-esophageal reflux disease with esophagitis (principal); R07.89 Other chest pain; E78.00 Pure hypercholesterolemia, unspecified; I10 Essential (primary) hypertension; J44.9 Chronic obstructive pulmonary disease, unspecified; K21.9 Gastro-esophageal reflux disease without esophagitis; F17.210 Nicotine dependence, cigarettes, uncomplicated; Z88.5 Allergy status to narcotic agent; Z79.899 Other long term (current) drug therapy
CPT/HCPCS: 36415; 71045; 80053; 82150; 83690; 84484; 85025; 93005; 96374; 96375; 99285; A9270; J2405; J3490

== ENCOUNTER 2021-02-24 18:22 | Emergency (ER) | payer OTHER ==
[2021-02-24] MEDS ORDERED: Sodium Chloride 0.9% 10 ML Syringe FLUSH PRN (18:48)
[2021-02-24 19:04] VITALS: BP 160/86; PULSE 82
[2021-02-24 19:16] LABS: PTT,PARTIAL THROMBOPLSTIN TIME 23.4 SEC (22.0-34.0)
[2021-02-24 19:22] LABS: ANION GAP 12.1 mEq/L (7-13); CHLORIDE,CL 104 mmol/L (98-107); SODIUM,NA 139 mmol/L (136-145)
--- NOTE | 2021-02-24 19:30 | CR ---
PROCEDURE INFORMATION: Exam: XR Chest Exam date and time: 02/24/2021 7:01 PM Age: 65 years old Clinical indication: Chest wall pain; Additional info: Chest pain TECHNIQUE: Imaging protocol: XR of the chest. Views: 1 view. COMPARISON: CR Chest 1V Frontal 01/14/2019 8:37 AM FINDINGS: Lungs: Unremarkable. No consolidation. Pleural spaces: Unremarkable. No pleural effusion. No pneumothorax. Heart/Mediastinum: Unremarkable. No cardiomegaly. Bones/joints: Unremarkable. IMPRESSION: No acute findings.
[2021-02-24] MEDS ORDERED: Aspirin 81 MG Tab.Chew PO ONE ×2 (19:58→20:11)
--- NOTE | 2021-02-24 21:04 | EDM.PDOC ---
ED HPI GENERAL MEDICAL PROBLEM - General Chief Complaint: Chest Pain Stated Complaint: CHEST PAIN Time Seen by Provider: 02/24/21 19:20 Source of Information: Reports: Patient History Limitations: Reports: No Limitations - History of Present Illness INITIAL COMMENTS - FREE TEXT/NARRATIVE: ED via POV with c/o left chest pain radiating to back, worse with movment, episode this am then started again around 4pm. Some cough, no change from norm, smoker 1/4 pack per day. No recent fever/ chills. No change in activity. Left Chest Pain Score (Numeric/FACES): 8 - Related Data Allergies Allergy/AdvReac Type Severity Reaction Status Date / Time morphine Allergy Hallucinati Verified 02/24/21 18:36 ons quinine Allergy Rash Verified 02/24/21 18:36 Home Meds: Home Meds Acetaminophen [Tylenol] 650 mg PO Q6H PRN 10/14/17 [History] Hydrocodone/Acetaminophen [Hydrocodon-Acetaminophen 5-325] 1 tab PO Q4HR PRN 01/14/19 [History] Citalopram [Citalopram HBr] 20 mg pe PO DAILY 03/13/19 [History] Albuterol Sulfate [Albuterol Sulfate Hfa] 2 puff INH Q4H PRN 02/24/21 [History] Diclofenac Sodium [Arthritis Pain Reliever] 1 applic TOP Q4H PRN 02/24/21 [History] Past Medical History - Past Health History Medical/Surgical History: Denies Medical/Surgical History HEENT History: Reports: Impaired Vision Other HEENT History: wears glasses Cardiovascular History: Reports: High Cholesterol Respiratory History: Reports: COPD Gastrointestinal History: Reports: Cholelithiasis, Cirrhosis, GERD Genitourinary History: Reports: Other (See Below) Other Genitourinary History: left renal ca 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 Dermatologic History: Reports: None - Infectious Disease History Infectious Disease History: Reports: Chicken Pox, Measles - Past Surgical History Head Surgeries/Procedures: Reports: None HEENT Surgical History: Reports: Other (See Below) Other HEENT Surgeries/Procedures: tooth surgery, cauterization of a nosebleed GI Surgical History: Reports: Appendectomy Female Surgical History: Reports: Other (See Below) Other Female Surgeries/Procedures: ovarian cyst Social & Family History - Family History Family Medical History: No Pertinent Family History - Tobacco Use Tobacco Use Status *Q: Current Every Day Tobacco User Years of Tobacco use: 35 Packs/Tins Daily: 1 - Caffeine Use Caffeine Use: Reports: Coffee - Recreational Drug Use Recreational Drug Use: No - Living Situation & Occupation Living situation: Reports: , with Significant Other, with Family Occupation: Employed ED ROS GENERAL - Review of Systems Review Of Systems: Comprehensive ROS is negative, except as noted in HPI. ED EXAM, GENERAL - Physical Exam Exam: See Below Exam Limited By: No Limitations General Appearance: Alert, No Apparent Distress, Anxious, Obese Eye Exam: Bilateral Eye: EOMI Ears: Normal External Exam, Hearing Grossly Normal Nose: Normal Inspection Throat/Mouth: Normal Inspection Head: Atraumatic, Normocephalic Neck: Normal Inspection Respiratory/Chest: No Respiratory Distress, Lungs Clear, Normal Breath Sounds, Other (left chest wall tender with palpation) Cardiovascular: Regular Rate, Rhythm, No Edema GI/Abdominal: Normal Bowel Sounds, Soft Back Exam: Normal Inspection Extremities: Normal Inspection Neurological: Alert, Oriented, Normal Cognition, No Motor/Sensory Deficits Psychiatric: Normal Affect, Normal Mood Skin Exam: Warm, Dry, Intact, Normal Color Course - Vital Signs Last Recorded V/S: Last Vital Signs Temp 96.8 F L 02/24/21 18:28 Pulse 82 02/24/21 18:28 Resp 20 02/24/21 18:28 BP 160/86 H 02/24/21 18:28 Pulse Ox 97 02/24/21 18:28 - Orders/Labs/Meds Orders: Active Orders 24 hr Category Date Time Status Peripheral IV Insertion Adult [OM.PC] Stat Oth 02/24/21 18:48 Ordered Labs: Laboratory Tests 02/24/21 02/24/21 02/24/21 Range/Units 18:50 18:50 18:50 WBC 9.0 (5.0-10.0) 10^3/uL RBC 4.73 (4.2-5.4) 10^6/uL Hgb 14.3 (12.0-16.0) g/dL Hct 42.7 (37.0-47.0) % MCV 90.3 (80-100) fL MCH 30.2 (27.0-34.0) pg MCHC 33.5 (33.0-35.0) g/dL Plt Count 196 (150-450) 10^3/uL Neut % (Auto) 55.8 (42.2-75.2) % Lymph % (Auto) 32.3 (20.5-50.1) % [place] % (Auto) 9.2 H (2-8) % Eos % (Auto) 2.3 (1.0-3.0) % Baso % (Auto) 0.4 (0.0-1.0) % PT 9.9 (9.0-12.0) SEC INR 1.0 (0.9-1.2) APTT 23.4 (22.0-34.0) SEC D-Dimer, Quantitative 326 (0-400) ng/mL Sodium 139 (136-145) mmol/L Potassium 4.1 (3.5-5.1) mmol/L Chloride 104 (98-107) mmol/L Carbon Dioxide 27 (21-32) mmol/L Anion Gap 12.1 (7-13) mEq/L BUN 13 (7-18) mg/dL Creatinine 0.99 (0.55-1.02) mg/dL Est Cr Clr Drug Dosing 47.62 mL/min Estimated GFR (MDRD) 56 BUN/Creatinine Ratio 13.1 (No establ ref range) Glucose 129 H (70-99) mg/dL Calcium 8.4 L (8.5-10.1) mg/dL Total Bilirubin 0.4 (0.2-1.0) mg/dL AST 25 (15-37) U/L ALT 56 (14-59) U/L Alkaline Phosphatase 88 (46-116) U/L Troponin I < 0.017 (0.000-0.056) ng/mL C-Reactive Protein 0.4 (0.0-0.9) mg/dL B-Natriuretic Peptide 23 (0-100) pg/ml Total Protein 6.7 (6.4-8.2) g/dL Albumin 3.5 (3.4-5.0) g/dL Globulin 3.2 Albumin/Globulin Ratio 1.1 Amylase 75 (25-115) U/L Lipase 77 (73-393) U/L SARS-CoV-2 RNA (BOB) (NEGATIVE) 02/24/21 Range/Units 19:55 WBC (5.0-10.0) 10^3/uL RBC (4.2-5.4) 10^6/uL Hgb (12.0-16.0) g/dL Hct (37.0-47.0) % MCV (80-100) fL MCH (27.0-34.0) pg MCHC (33.0-35.0) g/dL Plt Count (150-450) 10^3/uL Neut % (Auto) (42.2-75.2) % Lymph % (Auto) (20.5-50.1) % [place] % (Auto) (2-8) % Eos % (Auto) (1.0-3.0) % Baso % (Auto) (0.0-1.0) % PT (9.0-12.0) SEC INR (0.9-1.2) APTT (22.0-34.0) SEC D-Dimer, Quantitative (0-400) ng/mL Sodium (136-145) mmol/L Potassium (3.5-5.1) mmol/L Chloride (98-107) mmol/L Carbon Dioxide (21-32) mmol/L Anion Gap (7-13) mEq/L BUN (7-18) mg/dL Creatinine (0.55-1.02) mg/dL Est Cr Clr Drug Dosing mL/min Estimated GFR (MDRD) BUN/Creatinine Ratio (No establ ref range) Glucose (70-99) mg/dL Calcium (8.5-10.1) mg/dL Total Bilirubin (0.2-1.0) mg/dL AST (15-37) U/L ALT (14-59) U/L Alkaline Phosphatase (46-116) U/L Troponin I (0.000-0.056) ng/mL C-Reactive Protein (0.0-0.9) mg/dL B-Natriuretic Peptide (0-100) pg/ml Total Protein (6.4-8.2) g/dL Albumin (3.4-5.0) g/dL Globulin Albumin/Globulin Ratio Amylase (25-115) U/L Lipase (73-393) U/L SARS-CoV-2 RNA (BOB) Negative (NEGATIVE) Meds: Medications Discontinued Medications Generic Name Dose Route Start Last Admin Trade Name Freq PRN Reason Stop Dose Admin Aspirin 324 mg 02/24/21 19:58 Aspirin 81 Mg Tab.Chew PO 02/24/21 19:59 ONETIME ONE Aspirin 162 mg 02/24/21 20:11 02/24/21 20:12 Aspirin 81 Mg Tab.Chew PO 02/24/21 20:12 162 mg ONETIME ONE Administration Sodium Chloride 10 ml 02/24/21 18:48 Sodium Chloride 0.9% 10 Ml Syringe FLUSH ASDIRECTED PRN Keep Vein Open - Re-Assessments/Exams Free Text/Narrative Re-Assessment/Exam: Recommended repeat troponin, patient requests to go home and will return if symptoms worsen Departure - Departure Time of Disposition: 21:01 Disposition: Home, Self-Care 01 Clinical Impression: Chest wall pain Instructions: Chest Wall Pain, [id number] Referrals: PCP,None [Primary Care Provider] - Forms: ED Department Discharge Additional Instructions: tylenol or ibuprofen every 4 hours as needed for discomfort follow up clinic recheck on Monday, sooner if symptoms worsen, radiation of pain breathing difficulty , sweating warm or cold pack to chest wall for comfort Sepsis Event Note (ED) - Evaluation Sepsis Screening Result: No Definite Risk
== END 2021-02-24 21:19 | disposition home or self-care (01) ==
LOC: DL.ED 18:22
DX: R07.89 Other chest pain (principal); J44.9 Chronic obstructive pulmonary disease, unspecified; E66.9 Obesity, unspecified; Z68.39 Body mass index [BMI] 39.0-39.9, adult; Z20.822 Contact with and (suspected) exposure to COVID-19; Z72.0 Tobacco use; Z88.5 Allergy status to narcotic agent; Z88.8 Allergy status to other drugs, medicaments and biological substances; Z79.899 Other long term (current) drug therapy
CPT/HCPCS: 36415; 71045; 80053; 82150; 83690; 83880; 84484; 85025; 85379; 85610; 85730; 86140; 87635; 93005; 99285; A9270; U0002

== ENCOUNTER 2023-01-20 08:30 | Emergency (ER) | payer OTHER ==
[2023-01-20 08:44] VITALS: BP 187/110; PULSE 107
[2023-01-20] MEDS ORDERED: Acetaminophen/HYDROcodone 325-10 MG Tab PO ONE (08:48)
== END 2023-01-20 09:27 | disposition home or self-care (01) ==
LOC: DL.ED 08:30
DX: S82.832A Other fracture of upper and lower end of left fibula, initial encounter for closed fracture (principal); J44.9 Chronic obstructive pulmonary disease, unspecified; E66.9 Obesity, unspecified; Z68.30 Body mass index [BMI] 30.0-30.9, adult; Z88.5 Allergy status to narcotic agent; Z88.8 Allergy status to other drugs, medicaments and biological substances; W18.30XA Fall on same level, unspecified, initial encounter
CPT/HCPCS: 29515; 73590-LT; 73610-LT; 99283; A9270-GY

== ENCOUNTER 2023-10-12 10:38 | Emergency (ER) | payer OTHER ==
[2023-10-12] MEDS ORDERED: Sodium Chloride 0.9% 10 ML Syringe FLUSH PRN (10:53)
[2023-10-12] MEDS ORDERED: Sodium Chloride 0.9% 1,000 ML IV ONE (10:53)
[2023-10-12 11:01] LABS: BASOPHILS PERCENT AUTO 0.6 % (0.0-1.0); EOSINOPHILS PERCENT AUTO 1.9 % (1.0-3.0); HEMATOCRIT 45.9 % (37.0-47.0); HEMOGLOBIN 15.3 g/dL (12.0-16.0); LYMPHOCYTES PERCENT AUTO 24.5 % (20.5-50.1); MEAN CORPUSCULAR HEMOGLOBIN 30.4 pg (27.0-34.0); MEAN CORPUSCULAR HGB CONC 33.3 g/dL (33.0-35.0); MEAN CORPUSCULAR VOLUME 91.3 fL (80-100); MONOCYTES PERCENT AUTO 8.7 % (2-8); NEUTROPHILS PERCENT AUTO 64.3 % (42.2-75.2); PLATELET COUNT,PLT 198 10^3/uL (150-450); RED BLOOD CELL COUNT 5.03 10^6/uL (4.2-5.4); WHITE BLOOD CELL COUNT,WBC 9.4 10^3/uL (5.0-10.0)
[2023-10-12 11:20] LABS: A/G RATIO 0.9; ALBUMIN 3.6 g/dL (3.4-5.0); ANION GAP 14.6 mEq/L (7-13); BILIRUBIN TOTAL 0.6 mg/dL (0.2-1.0); BUN/CREATININE RATIO 12.1 (No establ ref range); CALCIUM 8.8 mg/dL (8.5-10.1); CREATININE 0.99 mg/dL (0.55-1.02); EST CRCL DRUG DOSING (CG) 45.66 mL/min; POTASSIUM,K 4.6 mmol/L (3.5-5.1); PROTEIN TOTAL,TP 7.4 g/dL (6.4-8.2)
[2023-10-12 12:21] LABS: CORONAVIRUS COVID-19 NAA NEGATIVE (NEGATIVE); INFLUENZA A NAA NEGATIVE (NEGATIVE); INFLUENZA B NAA NEGATIVE (NEGATIVE); RESPIRATORY SYNCYTIAL VIR NAA NEGATIVE (NEGATIVE)
[2023-10-12 12:52] LABS: APPEARANCE,URINE CLEAR (CLEAR); BILIRUBIN,URINE NEGATIVE (NEGATIVE); COLOR,URINE YELLOW (YELLOW); GLUCOSE,URINE NEGATIVE (NEGATIVE); KETONES,URINE NEGATIVE (NEGATIVE); LEUKOCYTE ESTERASE,URINE TRACE (NEGATIVE); NITRITE,URINE NEGATIVE (NEGATIVE); OCCULT BLOOD,URINE NEGATIVE (NEGATIVE); PROTEIN,URINE NEGATIVE (NEGATIVE); UROBILINOGEN,URINE 0.2 mg/dL (0.2-1.0)
[2023-10-12 13:03] LABS: BACTERIA,URINE FEW /HPF (0-FEW/HPF); EPITHELIAL CELLS,URINE FEW /HPF (NOT SEEN); MUCUS,URINE RARE /LPF (NOT SEEN); RBC,URINE NOT SEEN /HPF (0-5)
[2023-10-12] MEDS ORDERED: cefTRIAXone 2 GM Vial IVPUSH ONE (13:15)
[2023-10-12 13:39] VITALS: BP 187/100; PULSE 66
== END 2023-10-12 13:51 | disposition home or self-care (01) ==
LOC: DL.ED 10:38
DX: N30.00 Acute cystitis without hematuria (principal); J44.9 Chronic obstructive pulmonary disease, unspecified; E66.9 Obesity, unspecified; Z68.41 Body mass index [BMI] 40.0-44.9, adult; Z88.5 Allergy status to narcotic agent; Z88.8 Allergy status to other drugs, medicaments and biological substances; Z79.899 Other long term (current) drug therapy; Z20.822 Contact with and (suspected) exposure to COVID-19
CPT/HCPCS: 0241U; 36415; 70450; 80053; 81001; 85025; 87086; 87088; 87186; 96361; 96374; 99284; 99284-25; J0696; J3490; J7030